=== PATIENT | female | born 1945 | race Caucasian/White ===

== ENCOUNTER 2018-04-20 12:21 | Outpatient (CLI) | payer BC ==
--- NOTE | 2018-04-20 14:19 | XRAY Report ---
Reason: COUGH Procedure Date: 04/20/2018 Accession Number: [id number] / [id number] Procedure: XRN - Chest 2 View X-Ray CPT Code: 01001 FULL RESULT: EXAM: CHEST RADIOGRAPHY EXAM DATE: 04/20/2018 12:37 PM. CLINICAL HISTORY: COUGH. COMPARISON: XR CHEST PA AND LAT 11/13/2010 12:46 PM. TECHNIQUE: 2 views. FINDINGS: Lungs/Pleura: There is focal airspace opacity in the right infrahilar lower lobe with mild air bronchogram formation. Possible trace effusion. No extra ventilatory air. Mediastinum: Heart and mediastinal contours are unremarkable. Other: None. IMPRESSION: Right medial basilar airspace opacity. In the right clinical setting, this would favor pneumonia. [facility]
== END 2018-04-20 12:22 | disposition home or self-care (01) ==
LOC: DI.N 12:21
DX: R91.8 Other nonspecific abnormal finding of lung field (principal)
CPT/HCPCS: 71046

== ENCOUNTER 2022-10-10 14:45 | Outpatient (CLI) | payer BC | END 2022-10-10 23:59 | disposition short-term general hospital (02) | LOC: EMS 14:45 | DX: M25.512 Pain in left shoulder (principal); M25.511 Pain in right shoulder; M54.2 Cervicalgia; R20.2 Paresthesia of skin; S01.81XA Laceration without foreign body of other part of head, initial encounter; W18.39XA Other fall on same level, initial encounter; Y92.89 Other specified places as the place of occurrence of the external cause | CPT/HCPCS: A0425; A0429 ==